=== PATIENT | female | born 1985 | race African-American/Black ===

== ENCOUNTER 2019-02-22 09:17 | Observation (INO) | payer OTHER ==
[~2019-02-22] VITALS: Ht 170.2 cm; Wt 73.6 kg
[2019-02-22] MEDS ORDERED: NS 1,000 ML IV ONE (09:45)
[2019-02-22] MEDS ORDERED: KETOROLAC 30 MG/ML VIAL (J1885) IV ONE (09:45)
[2019-02-22 10:09] LABS: BASO % 0.2 % (0.0-1.0); HEMATOCRIT 35.7 % (36.0-47.0); HEMOGLOBIN 12.1 g/dl (12.0-15.5); LYMPH # 0.5 10^3/uL (1.5-4.5); LYMPH % 2.7 % (24.0-44.0); MEAN CORPUSCULAR HEMOGLOBIN 26.5 pg (27.0-33.0); MEAN CORPUSCULAR HGB CONC 33.9 g/dl (32.0-36.5); MEAN CORPUSCULAR VOLUME 78.1 fl (80.0-96.0); MONO # 0.8 10^3/uL (0.0-0.8); MONO % 4.1 % (0.0-5.0); NEUTROPHILS # 16.9 10^3/uL (1.8-7.7); NEUTROPHILS % 92.3 % (36.0-66.0); PLATELET COUNT, AUTOMATED 267 10^3/uL (150-450); RED BLOOD COUNT 4.57 10^6/uL (4.00-5.40); WHITE BLOOD COUNT 18.3 10^3/uL (4.0-10.0)
[2019-02-22 10:21] LABS: MYOGLOBIN SCREEN, URINE NEGATIVE (NEGATIVE)
[2019-02-22 10:49] LABS: ALBUMIN 4.3 GM/DL (3.2-5.2); ALT/SGPT 38 U/L (12-78); BILIRUBIN,TOTAL 0.5 MG/DL (0.2-1.0); BLOOD UREA NITROGEN 13 MG/DL (7-18); CALCIUM LEVEL 8.6 MG/DL (8.5-10.1); CARBON DIOXIDE LEVEL 25 MEQ/L (21-32); CHLORIDE LEVEL 107 MEQ/L (98-107); CPK CREATINE PHOSPHOKINASE 1911 U/L (26-192); GLOMERULAR FILTRATION RATE > 60.0 (>60); GLUCOSE, FASTING 102 MG/DL (70-100); MB/CK RELATIVE INDEX 0.38 (< OR =4); POTASSIUM SERUM 3.4 MEQ/L (3.5-5.1); SODIUM LEVEL 140 MEQ/L (136-145); TOTAL PROTEIN 7.5 GM/DL (6.4-8.2)
[2019-02-22] MEDS ORDERED: ACETAMINOPHEN TAB 650MG DOSE (2X325MG) PO PRN (11:45)
[2019-02-22] MEDS: NS 1,000 ML IV SCH ×2 (11:45→13:42)
[2019-02-22] MEDS ORDERED: POTASSIUM CHLORIDE 10 MEQ SR TABLET PO ONE (11:45)
[2019-02-22 13:30] VITALS: BP 127/87
[2019-02-22 16:00] VITALS: BP 128/85
[2019-02-22 20:00] VITALS: BP 119/77
--- NOTE | 2019-02-22 21:33 | HPEPDOC ---
General Date of Admission Feb 22, 2019 at 11:45 Chief Complaint The patient is a 33-year-old female admitted with lower extremity weakness/ Rhab domyolysis. Source: Patient Exam Limitations: No limitations History of Present Illness The patient is a 33-year-old female who presents today after running 11 miles in a "ruck" march which involved carrying heavy weight as well. The patient reports that total march was for 12 miles. However, towards the last mile, she reports she was very thirsty and hungry, was sweating and felt her legs giving way and was feeling too weak complete the march. The patient was seen by a medic at that time. She reports she was cold, shaking and hungry. She reports she went back to the hotel and was planning on going to sleep, however, she was advised by the medic to go to the hospital. She denied any associated headache/change in vision/nausea/vomiting/chest pain/shortness of breath/abdominal pain. Denies any aching of her muscles. She reports her urine when she urinated last time was light yellow in color. In the ER, patient was noticed to have rhabdomyolysis. Admission was requested given her lower extremity weakness in the setting of rhabdomyolysis for IV hydration and overnight observation. Home Medications No Active Prescriptions or Reported Meds Allergies Coded Allergies: No Known Allergies (Unverified , 02/22/19) Past Medical History Medical History Sickle cell trait, anxiety Surgical History Denies any previous surgeries. She has 2 kids born by natural childbirth. Family History Significant Family History: No pertinent family hx Patient denies any significant medical problems in her familythis was personally reviewed. Social History * Smoker: Denies Alcohol: occationally Drugs: denies Review of Systems Other systems Negative for 10 systems except as noted under history of present illness Physical Examination General Exam: Positive: Alert, Cooperative, No Acute Distress Eye Exam: Positive: PERRLA ENT Exam: Positive: Mucous membr. moist/pink Chest Exam: Positive: Clear to auscultation, Normal air movement; Negative: Rales, Rhonchi, Wheezing Heart Exam: Positive: Rate Normal, Normal S1, Normal S2; Negative: Murmurs, Rubs Abdomen Exam: Positive: Soft, Other (nontender) Extremity Exam: Positive: Other (no tenderness to palpation overt thighs/ calves) Skin Exam: Positive: Nl turgor and temperature Neuro Exam: Positive: Normal Speech, Strength at 5/5 X4 ext, Cranial Nerves 3- 12 NL, Reflexes 2+ Psych Exam: Positive: Mental status NL, Mood NL, Oriented x 3 Vital Signs Vital Signs Date Time Temp Pulse Resp B/P (MAP) Pulse Ox O2 Delivery O2 Flow Rate FiO2 02/22/19 20:00 97.7 69 20 119/77 (91) 98 02/22/19 13:07 Room Air Laboratory Data Labs 24H Laboratory Tests 2 02/22/19 09:48: Anion Gap 8, Glomerular Filtration Rate > 60.0, Blood Urea Nitrogen 13, Creatinine 1.20, Sodium Level 140, Potassium Level 3.4L, Chloride Level 107, Carbon Dioxide Level 25, Calcium Level 8.6, Aspartate Amino Transf (AST/SGOT) 56H, Alanine Aminotransferase (ALT/SGPT) 38, Total Creatine Kinase 1911H, Alkaline Phosphatase 69, Total Bilirubin 0.5, Total Protein 7.5, Albumin 4.3, Creatine Kinase MB 7.0H, Creatine Kinase MB Relative Index 0.38, Albumin/Globulin Ratio 1.34 02/22/19 09:49: Immature Granulocyte % (Auto) 0.7, White Blood Count 18.3H, Red Blood Count 4.57, Hemoglobin 12.1, Hematocrit 35.7L, Mean Corpuscular Volume 78.1L, Mean Corpuscular Hemoglobin 26.5L, Mean Corpuscular Hemoglobin Concent 33.9, Red Cell Distribution Width 14.5, Platelet Count 267, Neutrophils (%) (Auto) 92.3H, Lymphocytes (%) (Auto) 2.7L, Monocytes (%) (Auto) 4.1, Eosinophils (%) (Auto) 0. 0, Basophils (%) (Auto) 0.2, Neutrophils # (Auto) 16.9H, Lymphocytes # (Auto) 0.5L, Monocytes # (Auto) 0.8, Eosinophils # (Auto) 0.0, Basophils # (Auto) 0.0, Nucleated Red Blood Cells % (auto) 0.0, Urine Color YELLOW, Urine Appearance HAZY, Urine pH 5.0, Urine Specific [place] 1.012, Urine Protein 1+H, Urine Glucose (UA) NEGATIVE, Urine Ketones 1+H, Urine Blood NEGATIVE, Urine Nitrite NEGATIVE, Urine Bilirubin NEGATIVE, Urine Urobilinogen 0.2, Urine Leukocyte Esterase NEGATIVE, Urine WBC (Auto) 2, Urine RBC (Auto) 1, Urine Hyaline Casts (Auto) 0, Urine Bacteria (Auto) NEGATIVE, Urine Squamous Epithelial Cells 2, Urine Amorphous Sediment SMALLH, Urine Mucus (Auto) SMALL, Urine Sperm (Auto) , Urine Myoglobin NEGATIVE CBC/BMP Laboratory Tests 02/22/19 09:48 Calcium Level 8.6, Aspartate Amino Transf (AST/SGOT) 56 H, Alanine Aminotransferase (ALT/SGPT) 38, Total Creatine Kinase 1911 H, Alkaline Phosphatase 69, Total Bilirubin 0.5, Total Protein 7.5, Albumin 4.3 02/22/19 09:49 Red Blood Count 4.57, Mean Corpuscular Volume 78.1 L, Mean Corpuscular Hemoglobin 26.5 L, Mean Corpuscular Hemoglobin Concent 33.9, Red Cell Distribution Width 14.5, Neutrophils (%) (Auto) 92.3 H, Lymphocytes (%) (Auto) 2.7 L, Monocytes (%) (Auto) 4.1, Eosinophils (%) (Auto) 0.0, Basophils (%) (Auto) 0.2, Neutrophils # (Auto) 16.9 H, Lymphocytes # (Auto) 0.5 L, Monocytes # (Auto) 0.8, Eosinophils # (Auto) 0.0, Basophils # (Auto) 0.0 Assessment/Plan Acute rhabdomyolysis: -Likely secondary to exertion -Continue aggressive IV fluids -Recheck CPK in a.m. -Encouraged oral fluid intake Lower extremity weakness: -Subjective, likely related to above -Normal strength on testing Leucocytosis: -Likely combination of dehydration and reactive -Recheck in a.m. Sickle cell trait: -No intervention at this time Hypokalemia: -Replete and recheck DVT prophylaxis: -Low risk CODE STATUS: Full code per my discussion with the patient Disposition: Admitted as an observation status to medical surgical floor. Anticipated length of stay less than 2 midnights. Anticipate discharge home hopefully by tomorrow Plan / VTE VTE Prophylaxis Ordered?: No VTE Exclusion Mechanical Proph: Low Risk for VTE VTE Exclusion Pharmacological: At Low Risk for VTE EVELYNE JOEL MD Feb 22, 2019 21:33
[2019-02-23] VITALS: BP 121/77
[2019-02-23] MEDS: NS 1,000 ML IV SCH ×2 (01:05→09:37)
[2019-02-23 07:15] LABS: HEMATOCRIT 30.5 % (36.0-47.0); HEMOGLOBIN 10.4 g/dl (12.0-15.5); MEAN CORPUSCULAR HEMOGLOBIN 26.3 pg (27.0-33.0); MEAN CORPUSCULAR HGB CONC 34.1 g/dl (32.0-36.5); MEAN CORPUSCULAR VOLUME 77.2 fl (80.0-96.0); PLATELET COUNT, AUTOMATED 228 10^3/uL (150-450); RED BLOOD COUNT 3.95 10^6/uL (4.00-5.40); WHITE BLOOD COUNT 5.7 10^3/uL (4.0-10.0)
[2019-02-23 08:03] LABS: ALBUMIN 3.4 GM/DL (3.2-5.2); ALT/SGPT 35 U/L (12-78); BILIRUBIN,TOTAL 0.3 MG/DL (0.2-1.0); BLOOD UREA NITROGEN 5 MG/DL (7-18); CALCIUM LEVEL 7.7 MG/DL (8.5-10.1); CARBON DIOXIDE LEVEL 23 MEQ/L (21-32); CHLORIDE LEVEL 115 MEQ/L (98-107); CPK CREATINE PHOSPHOKINASE 2052 U/L (26-192); CREATININE FOR GFR 0.88 MG/DL (0.55-1.30); GLOMERULAR FILTRATION RATE > 60.0 (>60); GLUCOSE, FASTING 86 MG/DL (70-100); PHOSPHORUS LEVEL 2.9 MG/DL (2.5-4.9); POTASSIUM SERUM 3.7 MEQ/L (3.5-5.1); SODIUM LEVEL 144 MEQ/L (136-145); TOTAL PROTEIN 5.8 GM/DL (6.4-8.2)
[2019-02-23 09:00] VITALS: BP 130/88
[2019-02-23] MEDS: NS 0.45% 1,000 ML IV SCH ×4 (10:16→23:45)
[2019-02-23 12:00] VITALS: BP 129/87
[2019-02-23 16:00] VITALS: BP 124/82
--- NOTE | 2019-02-23 17:28 | IPNPDOC ---
Subjective Date Seen The patient was seen on 02/23/19. Subjective Chief Complaint/HPI Lower extremity weakness, rhabdomyolysis Events since last encounter The patient reports she is feeling better today. Was able to ambulate in the hallway without any problems. Tolerating ordered. No nausea vomiting. Denies any chest pain or shortness of breath. Objective Physical Examination General Exam: Positive: Alert, Cooperative, No Acute Distress Eye Exam: Positive: PERRLA ENT Exam: Positive: Mucous membr. moist/pink Chest Exam: Positive: Clear to auscultation; Negative: Rales, Rhonchi, Wheezing Heart Exam: Positive: Rate Normal, Normal S1, Normal S2 Abdomen Exam: Positive: Soft, Other (nontender) Skin Exam: Positive: Nl turgor and temperature Neuro Exam: Positive: Other (strength 5 over 5 in bilateral lower extremities. Intact fine touch.) Psych Exam: Positive: Mental status NL, Mood NL, Oriented x 3 Assessment /Plan Assessment Acute rhabdomyolysis, worsening: -Likely secondary to exertion -Continue aggressive IV fluids - patient was on 200 mL per hour of half normal salinestill has worsening CK. I will increase IV fluids to 250 mL an hour. -Recheck CK in a.m. -Encouraged oral fluid intake Lower extremity weakness: -Subjective, likely related to above -Has improved -Normal strength on testing Leucocytosis: -Likely combination of dehydration and reactive -Resolved with IV fluids Sickle cell trait: -No intervention at this time Anemia: -Likely dilutional related to IV fluids. Monitor. No indication for transfusion. Hypokalemia: -Resolved DVT prophylaxis: -Low risk Dispositionpatient has worsening rhabdomyolysis despite aggressive IV hydration. She will require continued IV fluids at least until tomorrow. Recheck CK in the morning. Anticipate discharge home once CKs are downtrending. Plan/VTE VTE Prophylaxis Ordered?: No VTE Exclusion Mechanical Proph: Low Risk for VTE VTE Exclusion Pharmacological: At Low Risk for VTE VS, I&O, 24H, Fishbone Vital Signs/I&O Vital Signs Date Time Temp Pulse Resp B/P (MAP) Pulse Ox O2 Delivery O2 Flow Rate FiO2 02/23/19 16:00 98.2 63 18 124/82 (96) 98 02/22/19 13:07 Room Air I&O- Last 24 Hours up to 6 AM 02/23/19 06:00 Intake Total 2715 ml Output Total 1550 ml Balance 1165 ml Laboratory Data 24H LABS Laboratory Tests 2 02/23/19 06:49: Nucleated Red Blood Cells % (auto) 0.0, Anion Gap 6L, Glomerular Filtration Rate > 60.0, Blood Urea Nitrogen 5#L, Creatinine 0.88, Sodium Level 144, Potassium Level 3.7, Chloride Level 115H, Carbon Dioxide Level 23, Calcium Level 7.7L, Phosphorus Level 2.9, Aspartate Amino Transf (AST/SGOT) 56H, Alanine Aminotransferase (ALT/SGPT) 35, Total Creatine Kinase 2052H, Alkaline Phosphatase 53, Total Bilirubin 0.3, Total Protein 5.8#L, Albumin 3.4#, Magnesium Level 2.0, Albumin/Globulin Ratio 1.42 02/23/19 15:42: Total Creatine Kinase 2235H CBC/BMP Laboratory Tests 02/23/19 06:49 Red Blood Count 3.95 L, Mean Corpuscular Volume 77.2 L, Mean Corpuscular Hemoglobin 26.3 L, Mean Corpuscular Hemoglobin Concent 34.1, Red Cell Distribution Width 14.5, Calcium Level 7.7 L, Phosphorus Level 2.9, Aspartate Amino Transf (AST/SGOT) 56 H, Alanine Aminotransferase (ALT/SGPT) 35, Total Creatine Kinase 2052 H, Alkaline Phosphatase 53, Total Bilirubin 0.3, Total Protein 5.8 #L, Albumin 3.4 # EVELYNE JOEL MD Feb 23, 2019 17:28
[2019-02-23 20:00] VITALS: BP 130/80
[2019-02-24] VITALS: BP 124/84
[2019-02-24] MEDS: NS 0.45% 1,000 ML IV SCH ×2 (03:26→07:07)
[2019-02-24 08:31] LABS: BLOOD UREA NITROGEN 5 MG/DL (7-18); CALCIUM LEVEL 7.8 MG/DL (8.5-10.1); CARBON DIOXIDE LEVEL 24 MEQ/L (21-32); CHLORIDE LEVEL 112 MEQ/L (98-107); CPK CREATINE PHOSPHOKINASE 1655 U/L (26-192); CREATININE FOR GFR 0.84 MG/DL (0.55-1.30); GLOMERULAR FILTRATION RATE > 60.0 (>60); GLUCOSE, FASTING 87 MG/DL (70-100); MAGNESIUM LEVEL 1.9 MG/DL (1.8-2.4); PHOSPHORUS LEVEL 3.4 MG/DL (2.5-4.9); POTASSIUM SERUM 3.6 MEQ/L (3.5-5.1); SODIUM LEVEL 141 MEQ/L (136-145)
[2019-02-24 09:00] VITALS: BP 140/95
--- NOTE | 2019-02-24 18:02 | DS.PDOC ---
Discharge Summary General Date of Admission Feb 22, 2019 at 11:45 Date of Discharge 02/24/19 Discharge Summary PROCEDURES PERFORMED DURING STAY: None. ADMITTING DIAGNOSES: Acute rhabdomyolysis, Lower extremity weakness, Leucocytosis, Sickle cell trait, Hypokalemia DISCHARGE DIAGNOSES: Acute rhabdomyolysis not improving, lower extremity weakness resolved, leukocytosis resolved, sickle cell trait, anemia, hypokalemia resolved COMPLICATIONS/CHIEF COMPLAINT: Rhabdomyolysis. HISTORY OF PRESENT ILLNESS: The patient is a 33-year-old female who presented to the ER with complaints of lower extremity weakness following an 11 mile "ruck- january" with findings in the ER also showing rhabdomyolysis admitted to our facility for further treatment. HOSPITAL COURSE: Acute rhabdomyolysis: -Likely secondary to exertion -The patient was admitted to our facility, treated aggressively with IV fluids -Initially, the CPKs up trended, but finally, today, the CPK is downtrendingdown to 1600 today. -The patient is tolerating oral intake well and drinking plenty of oral fluids -Advised patient to avoid excess exertion or heavy weight lifting. Recheck CPK on Thursday. Advised to drink plenty of oral fluids. The patient otherwise is doing better, able to ablate, lower extremity weakness has resolved, the patient is asymptomatic and does not have any muscle soreness or pains and plan is for her to be discharged home today. Lower extremity weakness: -Subjective, likely related to above -Has improved -Normal strength on testing Leucocytosis: -Likely combination of dehydration and reactive -Resolved with IV fluids Sickle cell trait: -No intervention at this time Anemia: -Likely dilutional related to IV fluids. No indication for transfusion. Hypokalemia: -Was treated and resolved On day of discharge, patient is tolerating oral intake, able to ambulate independently and is asymptomatic. DISCHARGE MEDICATIONS: None ALLERGIES: Please see below. PHYSICAL EXAMINATION ON DISCHARGE: VITAL SIGNS: Please see below. GENERAL: Lying in bed in no distress HEENT: PERRLA CARDIOVASCULAR EXAMINATION: S1, S2 heard, regular rate rhythm, no rubs or gallops RESPIRATORY EXAMINATION: Clear to auscultation bilaterally. No wheeze, no crackles ABDOMINAL EXAMINATION: Soft, nontender EXTREMITIES: No edema. No tenderness to palpation. NEUROLOGICAL EXAMINATION: Awake, alert. Moving all 4 extremities. PSYCHIATRIC EXAMINATION: Normal mood and affect LABORATORY DATA: Please see below. IMAGING: None ACTIVITY: Avoid heavy weight lifting or excess exertion until cleared by primary care provider DIET: Regular DISCHARGE PLAN: Patient to be discharged home today. Outpatient follow-up with primary care provider next week. CPK to be checked on Thursday. DISPOSITION: Home DISCHARGE CONDITION: Stable. TIME SPENT ON DISCHARGE: 32 minutes. Vital Signs/I&Os Vital Signs Date Time Temp Pulse Resp B/P (MAP) Pulse Ox O2 Delivery O2 Flow Rate FiO2 02/24/19 09:00 97.3 57 18 140/95 (110) 98 02/22/19 13:07 Room Air I&O- Last 24 Hours up to 6 AM 02/24/19 05:59 Intake Total 3155 ml Output Total 3700 ml Balance -545 ml Laboratory Data Labs 24H Laboratory Tests 2 02/24/19 06:51: Anion Gap 5L, Glomerular Filtration Rate > 60.0, Blood Urea Nitrogen 5L, Creatinine 0.84, Sodium Level 141, Potassium Level 3.6, Chloride Level 112H, Carbon Dioxide Level 24, Calcium Level 7.8L, Phosphorus Level 3.4, Magnesium Level 1.9, Total Creatine Kinase 1655H CBC/BMP Laboratory Tests 02/24/19 06:51 Calcium Level 7.8 L Discharge Medications No Active Prescriptions or Reported Meds Allergies Coded Allergies: No Known Allergies (Unverified , 02/22/19) EVELYNE JOEL MD Feb 24, 2019 18:02
== END 2019-02-24 13:20 | disposition home or self-care (01) ==
LOC: M ED 09:17 → M ED INP 11:45 → M PED 13:30
PROVIDERS: ADMIT Internal Medicine; ATTEND Internal Medicine
DX: M62.82 Rhabdomyolysis (principal); D72.829 Elevated white blood cell count, unspecified; D57.3 Sickle-cell trait; E87.6 Hypokalemia; D64.9 Anemia, unspecified; F41.9 Anxiety disorder, unspecified